=== PATIENT | female | born 1990 | race Hispanic/Latino ===

== ENCOUNTER 2025-09-13 17:25 | Emergency (ER) | payer OTHER, SELFPAY ==
[2025-09-13] MEDS ORDERED: AFRIN NASAL MIST 15 ML BOT ONE (18:21)
== END 2025-09-13 18:36 | disposition home or self-care (01) ==
LOC: CSHERS 17:25
DX: O98.511 Other viral diseases complicating pregnancy, first trimester (principal); J10.1 Influenza due to other identified influenza virus with other respiratory manifestations; I25.2 Old myocardial infarction; Z95.1 Presence of aortocoronary bypass graft; Z3A.12 12 weeks gestation of pregnancy
CPT/HCPCS: 87428; 99283